=== PATIENT | female | born 1955 | race Caucasian/White ===

== ENCOUNTER 2019-10-20 09:56 | Day surgery (SDC) | payer MEDICARE, BC ==
[~2019-10-20 09:56] MED LIST: Lactated Ringers 1,000 ML IV SCH; Midazolam 1 MG/ML 2 ML SDV ONE; Propofol 200 MG/20 ML SDV ONE; Sodium Chloride 0.9% 10 ML Syringe FLUSH PRN
--- NOTE | 2019-10-20 10:21 | PCM.HPR ---
H & P Addendum review - H & P Addendum Review Date of Original H & P: 10/06/19 Date Reviewed: 10/20/19 Time Reviewed: 10:21 Patient was Examined: No Changes
[2019-10-20] MEDS ORDERED: Propofol 200 MG/20 ML SDV ONE ×2 (11:38→11:39)
[2019-10-20] MEDS ORDERED: Midazolam 1 MG/ML 2 ML SDV ONE (11:39)
--- NOTE | 2019-10-20 12:12 | PCM.OPNOTE ---
- General Post-Op/Procedure Note Date of Surgery/Procedure: 10/20/19 Operative Procedure(s): Colonoscopy Findings: Normal Pre Op Diagnosis: Hx Polyps Post-Op Diagnosis: Same Anesthesia Technique: MARILU Primary Surgeon: Ole King Anesthesia Provider: Stephania York Complications: None Condition: Good
[2019-10-20 14:11] VITALS: BP 149/87; PULSE 83
--- NOTE | 2019-10-21 10:21 | OR ---
Date of Procedure: 10/20/2019 PREOPERATIVE DIAGNOSIS: Family and personal history of colon polyps. POSTOPERATIVE DIAGNOSIS: Normal colonoscopy. PROCEDURE: Colonoscopy. ANESTHESIA: IV sedation. DESCRIPTION OF PROCEDURE: The patient was brought to the procedure room where she was placed on her left side and IV sedation administered. Digital rectal exam was performed which was normal. Colonoscope was inserted and advanced to the level of the cecum without difficulty. Cecal position was confirmed by identifying the appendiceal lumen and ileocecal valve. Prep was good and surfaces were well visualized. Upon withdrawing the scope, the ascending, transverse, and descending colon were normal in appearance. Sigmoid colon and rectum were normal. Retroflexion was normal. Air was removed and the scope withdrawn. The patient tolerated the procedure well and returned to Recovery in stable condition. Recommend routine colon screening again in 5 years. MODMichael ROUSSEAU MD /[id number]
== END 2019-10-20 13:45 | disposition home or self-care (01) ==
LOC: LL.SDS 09:56
PROVIDERS: ATTEND Surgery
DX: Z12.11 Encounter for screening for malignant neoplasm of colon (principal); K21.9 Gastro-esophageal reflux disease without esophagitis; E78.2 Mixed hyperlipidemia; N18.3 Chronic kidney disease, stage 3 (moderate); F41.9 Anxiety disorder, unspecified; F32.9 Major depressive disorder, single episode, unspecified; Z86.010 Personal history of colon polyps; Z83.71 Family history of colonic polyps; Z79.82 Long term (current) use of aspirin; Z88.1 Allergy status to other antibiotic agents; Z91.048 Other nonmedicinal substance allergy status; Z79.899 Other long term (current) drug therapy
CPT/HCPCS: 00812; G0121; J2250; J2704; J7120

== ENCOUNTER 2021-08-16 12:00 | Emergency (ER) | payer MEDICARE, BC ==
[2021-08-16 12:10] VITALS: BP 103/87; PULSE 93
[2021-08-16] MEDS ORDERED: Lidocaine 2% with EPINEPHrine 1:100,000 20 ML MDV INJECT ONE (12:46)
--- NOTE | 2021-08-16 13:32 | EDM.PDOC ---
ED HPI GENERAL MEDICAL PROBLEM - General Chief Complaint: Laceration Stated Complaint: fall, laceration Time Seen by Provider: 08/16/21 12:36 Source of Information: Reports: Patient History Limitations: Reports: No Limitations - History of Present Illness INITIAL COMMENTS - FREE TEXT/NARRATIVE: Patient was walking out to mailbox accompanied by daughter when she tripped and fell. Complains of lip abrasion/laceration/hit head. No LOC. No complaints of concussion symptoms/vision change/neck pain/other acute changes. Hx of falls. Has Cadasil Syndrome. Uses a cane. Left Face/Facial Pain Score (Numeric/FACES): 1 - Related Data Allergies Allergy/AdvReac Type Severity Reaction Status Date / Time cat dander Allergy Bronchospas Verified 08/16/21 12:04 ms erythromycin base Allergy Nausea Verified 08/16/21 12:04 Home Meds: Home Meds Multivit-Minerals/Folic Acid [Women's Multivitamin Gummies] 1 tab PO DAILY 09/07/16 [History] Omeprazole 20 mg PO DAILY 09/07/16 [History] DULoxetine HCl [Duloxetine HCl] 1 cap PO DAILY 10/19/19 [History] Docusate Sodium 1 cap PO BID PRN 10/19/19 [History] Gabapentin [Neurontin] 300 mg PO BEDTIME 10/19/19 [History] Melatonin/Pyridoxine HCl (B6) [Melatonin-Vit B6 5-10 mg Tab] 0.5 - 1 tab PO BEDTIME 10/19/19 [History] Rosuvastatin Calcium 1.5 tab PO DAILY 10/19/19 [History] SUMAtriptan succinate [Imitrex] 1 tab PO ASDIRECTED PRN 10/19/19 [History] buPROPion HCL [Wellbutrin Xl] 1 tab PO BEDTIME 10/19/19 [History] Aspirin 81 mg PO DAILY 10/20/19 [History] Past Medical History HEENT History: Reports: Other (See Below) Other HEENT History: wears glasses Cardiovascular History: Reports: High Cholesterol, Other (See Below) Other Cardiovascular History: atrial flutter Respiratory History: Reports: Sleep Apnea Gastrointestinal History: Reports: Colon Polyp Genitourinary History: Reports: Renal Disease [employer] History: Reports: Musculoskeletal History: Reports: Arthritis Other Musculoskeletal History: chronic knee pain Neurological History: Reports: CVA, Speech Problems, Other (See Below) Other Neuro History: 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, cerebral artery occlusion with cerebral infarction, Cadasil syndrome Psychiatric History: Reports: Anxiety, Depression Endocrine/Metabolic History: Reports: Vitamin D Deficiency Other Dermatologic History: intrinsic aging of facial skin - Past Surgical History GI Surgical History: Reports: Colonoscopy, Polypectomy Female Surgical History: Reports: Section, Other (See Below) Other Female Surgeries/Procedures: Breast Lumpectomy Dermatological Surgical History: Reports: Other (See Below) Social & Family History - Tobacco Use Tobacco Use Status *Q: Never Tobacco User - Caffeine Use Caffeine Use: Reports: None ED ROS GENERAL - Review of Systems Review Of Systems: See Below Constitutional: Reports: No Symptoms HEENT: Reports: Other (lip abrasion/laceration) Respiratory: Reports: No Symptoms Cardiovascular: Reports: No Symptoms Endocrine: Reports: No Symptoms GI/Abdominal: Reports: No Symptoms : Reports: No Symptoms Musculoskeletal: Reports: Other (no acute changes from baseline) Skin: Reports: Wound Neurological: Reports: Other (No acute changes from baseline) Psychiatric: Reports: No Symptoms Hematologic/Lymphatic: Reports: No Symptoms ED EXAM, SKIN/RASH Exam: See Below Exam Limited By: No Limitations General Appearance: Alert, WD/WN, No Apparent Distress Eye Exam: Bilateral Eye: EOMI, PERRL Ears: Normal External Exam, Normal Canal, Hearing Grossly Normal Nose: No: Nasal Deformity, Nasal Swelling, Nasal Drainage Throat/Mouth: Other (right upper lip mildly swollen. Small external lac on cesario border, 1cm laceration inner mucosa) Head: Facial Swelling, Facial Tenderness. No: Sinus Tenderness Neck: Normal Inspection, Supple, Non-Tender, Full Range of Motion Respiratory/Chest: No Respiratory Distress, Lungs Clear, Normal Breath Sounds, No Accessory Muscle Use, Chest Non-Tender Cardiovascular: Regular Rate, Rhythm, No Murmur GI/Abdominal: Normal Bowel Sounds, Soft, Non-Tender (Female) Exam: Deferred Rectal (Female) Exam: Deferred Back Exam: Normal Inspection Extremities: Other (nontender/equal tone and strength) Neurological: Alert, Oriented, Normal Cognition Skin: Warm, Other (lip lac as noted above) ED SKIN PROCEDURES - Laceration/Wound Repair Right Upper Mouth Appearance: Subcutaneous, Linear, Clean Local Anesthesia - Lidocaine (Xylocaine): 1% with EPI Local Anesthetic Volume: 2cc Skin Prep: Saline Exploration/Debridement/Repair: Wound Explored, In a Bloodless Field, Explored to Base, Other (Small external wound over cesario border, small wound inner mucusal surface underneath. ) Closed with: Sutures Lac/Wound length In cm: 0.2 Suture Size: 5-0 # of Sutures: 1 Suture Type: Nylon, Interrupted Suture Size: 4-0 # of Sutures: 4 (for laceration of mucosal surface underneath external lac, this measured 1.2cm across) Repaired with: Chromic Drain Placement: No Sterile Dressing Applied: None Tetanus Status Addressed: Yes Course - Vital Signs Last Recorded V/S: Last Vital Signs Temp 36.9 C 08/16/21 12:05 Pulse 93 08/16/21 12:05 Resp 17 08/16/21 12:05 BP 103/87 08/16/21 12:05 Pulse Ox 98 08/16/21 12:05 - Orders/Labs/Meds Meds: Medications Discontinued Medications Generic Name Dose Route Start Last Admin Trade Name [place] PRN Reason Stop Dose Admin Lidocaine/Epinephrine 20 ml 08/16/21 12:46 08/16/21 12:56 Lidocaine 2% With Epinephrine 1:100,000 20 Ml Mdv INJECT 08/16/21 12:47 20 ml ONETIME ONE Administration - Re-Assessments/Exams Free Text/Narrative Re-Assessment/Exam: 08/16/21 15:54 Laceration repaired. Wound care reviewed. External suture out next Thursday. Internal sutures out Thursday if healing well, otherwise or Thursday. To follow up as needed if any problems develop such as signs infection. Departure - Departure Time of Disposition: 14:05 Disposition: Home, Self-Care 01 Condition: Good Clinical Impression: Laceration of lip, complicated Qualifiers: Encounter type: initial encounter Qualified Code(s): S01.511A - Laceration without foreign body of lip, initial encounter Fall Qualifiers: Encounter type: initial encounter Qualified Code(s): W19.XXXA - Unspecified fall, initial encounter Head contusion Qualifiers: Encounter type: initial encounter Contusion of head detail: unspecified part of head Qualified Code(s): S00.93XA - Contusion of unspecified part of head, initial encounter - Discharge Information *PRESCRIPTION DRUG MONITORING PROGRAM REVIEWED*: Not Applicable *COPY OF PRESCRIPTION DRUG MONITORING REPORT IN PATIENT MARU: Not Applicable Instructions: Facial Laceration, [id number] Referrals: Jigna Lamas PA-C [Primary Care Provider] - Forms: ED Department Discharge Additional Instructions: Remove outer suture on lip Thursday and inner sutures on or Thursday of next week. Return for recheck if any signs of infection/other problems develop. Wound care as reviewed! Ice contusions/elevate head to help with swelling. Sepsis Event Note (ED) - Evaluation Sepsis Screening Result: No Definite Risk - Focused Exam Vital Signs: Vital Signs Temp Pulse Resp BP Pulse Ox 08/16/21 12:05 36.9 C 93 17 103/87 98
== END 2021-08-16 14:20 | disposition home or self-care (01) ==
LOC: LL.ED 12:00
DX: S01.511A Laceration without foreign body of lip, initial encounter (principal); E78.00 Pure hypercholesterolemia, unspecified; I48.92 Unspecified atrial flutter; M19.90 Unspecified osteoarthritis, unspecified site; Z91.048 Other nonmedicinal substance allergy status; Z88.1 Allergy status to other antibiotic agents; Z79.82 Long term (current) use of aspirin; Z79.899 Other long term (current) drug therapy; W01.0XXA Fall on same level from slipping, tripping and stumbling without subsequent striking against object, initial encounter; Y93.01 Activity, walking, marching and hiking
CPT/HCPCS: 12011; 99283-25

== ENCOUNTER 2025-06-05 13:24 | Emergency (ER) | payer MEDICARE, BC ==
[2025-06-05 13:31] VITALS: BP 130/68
[2025-06-05 14:06] LABS: APPEARANCE,URINE CLOUDY; GLUCOSE,URINE NEGATIVE (NEGATIVE); OCCULT BLOOD,URINE LARGE (NEGATIVE)
[2025-06-05] MEDS: Lactated Ringers 1,000 ML IV SCH (14:19)
[2025-06-05 14:28] LABS: SQUAMOUS EPITHELIAL CELLS,UR OCCASIONAL /HPF (NOT SEEN)
[2025-06-05] MEDS: Sodium Chloride 0.9% 10 ML Syringe FLUSH PRN (15:40)
[2025-06-05 16:44] VITALS: PULSE 75
== END 2025-06-05 16:19 | disposition home or self-care (01) ==
LOC: LL.ED 13:24
DX: N39.0 Urinary tract infection, site not specified (principal); E78.00 Pure hypercholesterolemia, unspecified; Z91.048 Other nonmedicinal substance allergy status; Z88.1 Allergy status to other antibiotic agents; Z79.899 Other long term (current) drug therapy; Z86.73 Personal history of transient ischemic attack (TIA), and cerebral infarction without residual deficits
CPT/HCPCS: 81001; 87086; 87088; 87186; 96361; 96374; 99284; J0696; J7120

== ENCOUNTER 2025-06-20 11:26 | Inpatient (IN) | payer MEDICARE, BC ==
[2025-06-20 12:07] LABS: BASOPHILS ABSOLUTE AUTO 0.01 K/uL (0.00-0.20); BASOPHILS PERCENT AUTO 0.1 % (0.0-2.0); EOSINOPHILS ABSOLUTE AUTO 0.09 K/uL (0.00-0.50); EOSINOPHILS PERCENT AUTO 1.0 % (0.0-5.0); IMMATURE GRAN ABSOLUTE AUTO 0.02 10^3/uL (0.00-0.04); IMMATURE GRAN PERCENT AUTO 0.2 % (0.0-0.4); LYMPHOCYTES ABSOLUTE AUTO 0.77 K/uL (0.50-3.50); LYMPHOCYTES PERCENT AUTO 8.9 % (10.0-50.0); MONOCYTES ABSOLUTE AUTO 0.86 K/uL (0.00-1.00); MONOCYTES PERCENT AUTO 9.9 % (2.0-14.0); NEUTROPHILS ABSOLUTE AUTO 6.93 K/uL (1.40-7.00); NEUTROPHILS PERCENT AUTO 79.9 % (45.0-80.0); PLATELET COUNT,PLT 183 K/uL (150-350); RED BLOOD CELL COUNT 4.03 M/uL (3.77-5.09); RED CELL DISTRIBUTION WIDTH 13.5 % (11.2-14.1); WHITE BLOOD CELL COUNT,WBC 8.7 K/uL (4.0-10.2)
[2025-06-20 12:23] LABS: ALANINE AMINOTRANSFERASE,ALT 15.0 U/L (12-78); ASPARTATE AMNIOTRANSFERASE,AST 20.0 U/L (15-37); BILIRUBIN TOTAL 1.0 mg/dL (0.2-1.0); BLOOD UREA NITROGEN,BUN 20.0 mg/dL (7-18); CARBON DIOXIDE,CO2 28.2 mmol/L (21.0-32.0); CHLORIDE,CL 106.0 mmol/L (98-107); CREATININE 1.9 mg/dL (0.51-1.17); EST CRCL DRUG DOSING (CG) 23.45 mL/min; GLUCOSE RANDOM 137.0 mg/dL (70-99); POTASSIUM,K 3.9 mmol/L (3.5-5.1); PROTEIN TOTAL,TP 6.6 g/dL (6.4-8.2); SODIUM,NA 143.0 mmol/L (136-145)
[2025-06-20 12:25] LABS: ESTIMATED GFR 28.0 mL/min (>=60)
[2025-06-20 12:34] LABS: APPEARANCE,URINE SLIGHTLY CLOUDY; GLUCOSE,URINE NEGATIVE (NEGATIVE); OCCULT BLOOD,URINE LARGE (NEGATIVE)
[2025-06-20 12:40] LABS: SQUAMOUS EPITHELIAL CELLS,UR RARE /HPF (NOT SEEN)
[2025-06-20] MEDS: buPROPion 150 MG Tab.ER PO SCH (20:27)
[2025-06-20] MEDS: Non-Formulary Medication 1 Each (Rosuvastatin Calcium [Rosuvastatin Calcium] 20 MG Tablet) PO SCH (21:01)
[2025-06-21 07:27] LABS: BASOPHILS ABSOLUTE AUTO 0.03 K/uL (0.00-0.20); BASOPHILS PERCENT AUTO 0.5 % (0.0-2.0); EOSINOPHILS ABSOLUTE AUTO 0.12 K/uL (0.00-0.50); EOSINOPHILS PERCENT AUTO 1.9 % (0.0-5.0); IMMATURE GRAN ABSOLUTE AUTO 0.01 10^3/uL (0.00-0.04); IMMATURE GRAN PERCENT AUTO 0.2 % (0.0-0.4); LYMPHOCYTES ABSOLUTE AUTO 1.50 K/uL (0.50-3.50); LYMPHOCYTES PERCENT AUTO 23.4 % (10.0-50.0); MONOCYTES ABSOLUTE AUTO 0.89 K/uL (0.00-1.00); MONOCYTES PERCENT AUTO 13.9 % (2.0-14.0); NEUTROPHILS ABSOLUTE AUTO 3.87 K/uL (1.40-7.00); NEUTROPHILS PERCENT AUTO 60.1 % (45.0-80.0); PLATELET COUNT,PLT 152 K/uL (150-350); RED BLOOD CELL COUNT 3.68 M/uL (3.77-5.09); RED CELL DISTRIBUTION WIDTH 13.2 % (11.2-14.1); WHITE BLOOD CELL COUNT,WBC 6.4 K/uL (4.0-10.2)
[2025-06-21 07:37] LABS: BLOOD UREA NITROGEN,BUN 17.0 mg/dL (7-18); CARBON DIOXIDE,CO2 31.1 mmol/L (21.0-32.0); CHLORIDE,CL 110.0 mmol/L (98-107); CREATININE 1.87 mg/dL (0.51-1.17); EST CRCL DRUG DOSING (CG) 23.83 mL/min; GLUCOSE RANDOM 95.0 mg/dL (70-99); POTASSIUM,K 4.3 mmol/L (3.5-5.1); SODIUM,NA 147.0 mmol/L (136-145)
[2025-06-21 07:42] LABS: ESTIMATED GFR 28.0 mL/min (>=60)
[2025-06-21] MEDS: Sodium Chloride 0.9% 10 ML Syringe FLUSH PRN (08:03)
[2025-06-21] MEDS ORDERED: DULOXETINE HCL 40 MG PO SCH (10:00)
[2025-06-22 07:28] LABS: BASOPHILS ABSOLUTE AUTO 0.04 K/uL (0.00-0.20); BASOPHILS PERCENT AUTO 0.6 % (0.0-2.0); EOSINOPHILS ABSOLUTE AUTO 0.20 K/uL (0.00-0.50); EOSINOPHILS PERCENT AUTO 3.2 % (0.0-5.0); IMMATURE GRAN ABSOLUTE AUTO 0.01 10^3/uL (0.00-0.04); IMMATURE GRAN PERCENT AUTO 0.2 % (0.0-0.4); LYMPHOCYTES ABSOLUTE AUTO 1.42 K/uL (0.50-3.50); LYMPHOCYTES PERCENT AUTO 22.7 % (10.0-50.0); MONOCYTES ABSOLUTE AUTO 0.70 K/uL (0.00-1.00); MONOCYTES PERCENT AUTO 11.2 % (2.0-14.0); NEUTROPHILS ABSOLUTE AUTO 3.89 K/uL (1.40-7.00); NEUTROPHILS PERCENT AUTO 62.1 % (45.0-80.0); PLATELET COUNT,PLT 195 K/uL (150-350); RED BLOOD CELL COUNT 3.92 M/uL (3.77-5.09); RED CELL DISTRIBUTION WIDTH 13.1 % (11.2-14.1); WHITE BLOOD CELL COUNT,WBC 6.3 K/uL (4.0-10.2)
[2025-06-22 07:49] LABS: BLOOD UREA NITROGEN,BUN 13.0 mg/dL (7-18); CARBON DIOXIDE,CO2 33.4 mmol/L (21.0-32.0); CHLORIDE,CL 108.0 mmol/L (98-107); CREATININE 1.69 mg/dL (0.51-1.17); EST CRCL DRUG DOSING (CG) 26.37 mL/min; GLUCOSE RANDOM 87.0 mg/dL (70-99); POTASSIUM,K 3.8 mmol/L (3.5-5.1); SODIUM,NA 147.0 mmol/L (136-145)
[2025-06-22 07:58] LABS: ESTIMATED GFR 32.0 mL/min (>=60)
[2025-06-23 07:47] LABS: BASOPHILS ABSOLUTE AUTO 0.04 K/uL (0.00-0.20); BASOPHILS PERCENT AUTO 0.7 % (0.0-2.0); EOSINOPHILS ABSOLUTE AUTO 0.21 K/uL (0.00-0.50); EOSINOPHILS PERCENT AUTO 3.8 % (0.0-5.0); IMMATURE GRAN ABSOLUTE AUTO 0.01 10^3/uL (0.00-0.04); IMMATURE GRAN PERCENT AUTO 0.2 % (0.0-0.4); LYMPHOCYTES ABSOLUTE AUTO 1.55 K/uL (0.50-3.50); LYMPHOCYTES PERCENT AUTO 27.9 % (10.0-50.0); MONOCYTES ABSOLUTE AUTO 0.50 K/uL (0.00-1.00); MONOCYTES PERCENT AUTO 9.0 % (2.0-14.0); NEUTROPHILS ABSOLUTE AUTO 3.25 K/uL (1.40-7.00); NEUTROPHILS PERCENT AUTO 58.4 % (45.0-80.0); PLATELET COUNT,PLT 239 K/uL (150-350); RED BLOOD CELL COUNT 4.33 M/uL (3.77-5.09); RED CELL DISTRIBUTION WIDTH 13.3 % (11.2-14.1); WHITE BLOOD CELL COUNT,WBC 5.6 K/uL (4.0-10.2)
[2025-06-23 07:54] VITALS: BP 126/77; PULSE 77
[2025-06-23 08:06] LABS: BLOOD UREA NITROGEN,BUN 21.0 mg/dL (7-18); CARBON DIOXIDE,CO2 31.1 mmol/L (21.0-32.0); CHLORIDE,CL 107.0 mmol/L (98-107); CREATININE 1.79 mg/dL (0.51-1.17); EST CRCL DRUG DOSING (CG) 24.89 mL/min; GLUCOSE RANDOM 92.0 mg/dL (70-99); POTASSIUM,K 3.7 mmol/L (3.5-5.1); SODIUM,NA 146.0 mmol/L (136-145)
[2025-06-23 08:12] LABS: ESTIMATED GFR 30.0 mL/min (>=60)
== END 2025-06-23 13:52 | disposition swing bed (61) | DRG 690 ==
LOC: LL.ED 11:26 → LL.MS 14:10
PROVIDERS: ADMIT Emergency Medicine; ATTEND Emergency Medicine
DX: N39.0 Urinary tract infection, site not specified (principal); N18.4 Chronic kidney disease, stage 4 (severe); F03.94 Unspecified dementia, unspecified severity, with anxiety; F03.93 Unspecified dementia, unspecified severity, with mood disturbance; N17.9 Acute kidney failure, unspecified; Z91.048 Other nonmedicinal substance allergy status; Z88.1 Allergy status to other antibiotic agents; R41.82 Altered mental status, unspecified; B96.20 Unspecified Escherichia coli [E. coli] as the cause of diseases classified elsewhere; G47.30 Sleep apnea, unspecified; E78.00 Pure hypercholesterolemia, unspecified; M19.90 Unspecified osteoarthritis, unspecified site; E55.9 Vitamin D deficiency, unspecified; K21.9 Gastro-esophageal reflux disease without esophagitis; Z88.8 Allergy status to other drugs, medicaments and biological substances; Z79.899 Other long term (current) drug therapy; Z79.82 Long term (current) use of aspirin; Z86.73 Personal history of transient ischemic attack (TIA), and cerebral infarction without residual deficits; Z98.891 History of uterine scar from previous surgery; Z98.890 Other specified postprocedural states
CPT/HCPCS: 36415; 80048; 80053; 81001; 83735; 85025; 86140; 87086; 87088; 87186; 96361; 96374; 97129-GO; 97165-GO; 97530-GO; 99223; 99232; 99233; 99239; 99285-25; A9270-GY; J0696; J1650; J2470; J7030

== ENCOUNTER 2025-06-23 13:52 | Inpatient (IN) | payer MEDICARE, BC ==
[~2025-06-23 13:52] MED LIST changes: -Lactated Ringers 1,000 ML IV SCH; -Midazolam 1 MG/ML 2 ML SDV ONE; -Propofol 200 MG/20 ML SDV ONE
[2025-06-23] MEDS: buPROPion 150 MG Tab.ER PO SCH (20:02)
[2025-06-26 12:31] VITALS: BP 119/66; PULSE 82
== END 2025-06-26 14:18 | disposition home or self-care (01) | DRG 948 ==
LOC: LL.MS 13:52
PROVIDERS: ADMIT Physician Assistant; ATTEND Physician Assistant
DX: R53.81 Other malaise (principal); N39.0 Urinary tract infection, site not specified; N18.4 Chronic kidney disease, stage 4 (severe); K21.9 Gastro-esophageal reflux disease without esophagitis; F03.B0 Unspecified dementia, moderate, without behavioral disturbance, psychotic disturbance, mood disturbance, and anxiety; E78.5 Hyperlipidemia, unspecified; G25.81 Restless legs syndrome; Z86.73 Personal history of transient ischemic attack (TIA), and cerebral infarction without residual deficits; Z79.899 Other long term (current) drug therapy
CPT/HCPCS: 97161-GP; 99316; A9270-GY